=== PATIENT | female | born 1990 | race African-American/Black ===

== ENCOUNTER 2021-10-04 12:37 | Emergency (ER) | payer SELFPAY ==
[2021-10-04] MEDS ORDERED: ACETAMINOPHEN 500 MG TABLET (FP) PO ONE (12:43)
[2021-10-04] MEDS ORDERED: KETOROLAC TROMETHAMINE 15 MG/ML VIAL IM ONE (12:43)
[2021-10-04] MEDS ORDERED: KETOROLAC TROMETHAMINE 30 MG/1 ML VIAL ONE (12:56)
[2021-10-04] MEDS ORDERED: ACETAMINOPHEN 500 MG TABLET (FP) ONE (12:56)
[2021-10-04 13:11] VITALS: BMI 24.3
[2021-10-04 14:56] VITALS: BP 103/69; PULSE 100; TEMP 100.3
== END 2021-10-04 15:15 | disposition home or self-care (01) ==
LOC: FER 12:37
PROC: 3E0233Z Introduction of Anti-inflammatory into Muscle, Percutaneous Approach (ICD-10-PCS; principal; 2021-10-04)
DX: J02.9 Acute pharyngitis, unspecified (principal); R51.9 Headache, unspecified; B34.9 Viral infection, unspecified
CPT/HCPCS: 87070; 87804; 99284-25; C9803; U0003; U0005